=== PATIENT | female | born 1965 | race Caucasian/White ===

== ENCOUNTER 2019-04-16 16:16 | Emergency (ER) | payer BC ==
--- NOTE | 2019-04-16 17:07 | UC ---
Abdominal Pain Female HPI - HPI Summary HPI Summary: pt with 3-4 days intermittent left flank abdominal pain. Today pain increased and pain in lower abd, mild cramping. states urinary frequency. no dysuria, hematuria. no fever, chills. No analgesia taken. No h/o similar no paresthesia. Pt with h/o crohns s/p surgery - not on immunosuppressants. no nausea, vomting, diarrhea meds reviewed - History of Current Complaint Chief Complaint: UCAbdominalPain Stated Complaint: ABDOMINAL COMPLAINT Time Seen by Provider: 04/16/19 16:57 Hx Obtained From: Patient ?: No Onset/Duration: Sudden Onset Pain Intensity: 9 Allergies/Adverse Reactions: Allergies Allergy/AdvReac Type Severity Reaction Status Date / Time amoxicillin [From Augmentin] Allergy Unknown Verified 04/16/19 16:29 Reaction Details clavulanic acid Allergy Unknown Verified 04/16/19 16:29 [From Augmentin] Reaction Details Home Medications: Home Medications Cholecalciferol (Vitamin D3) [Vitamin D3] 1,000 unit PO 04/16/19 [History] Cyanocobalamin (Vitamin B-12) [B-12] 2,500 mcg PO 04/16/19 [History] PMH/Surg Hx/FS Hx/Imm Hx Previously Healthy: Yes Other GI/ History: crohns' - Surgical History Surgical History: Yes Surgery Procedure, Year, and Place: 12/2006 - [facility] - (right) carpal tunnel. 1992 - . 1986 - appendectomy. 1990bowel resection r/t crohns. COLONOSCOPY - Family History Known Family History: Positive: Other - no hh/o renal colic, Non-Contributory - Social History Occupation: Employed Full-time Lives: With Family Alcohol Use: Rare Substance Use Type: None Smoking Status (MU): Never Smoked Tobacco Have You Smoked in the Last Year: No Review of Systems All Other Systems Reviewed And Are Negative: Yes Constitutional: Positive: Negative Skin: Positive: Negative Eyes: Positive: Negative ENT: Positive: Negative Respiratory: Positive: Negative Cardiovascular: Positive: Negative Gastrointestinal: Positive: Other - left flank pain Genitourinary: Positive: Frequency, Urgency. Negative: Hematuria Physical Exam - Summary Physical Exam Summary: Vital Signs Reviewed: Yes A+Ox3, no distress Eyes: Conjunctiva Clear, CLARE. EOM intact and full ENT: Hearing grossly normal TM x 2 clear, mmoist, uvula midline, no exudate, no erythema Neck: Positive: Supple Respiratory: Positive: No respiratory distress, No accessory muscle use + CTA throughout no w/r Cardiovascular: RRR nl s1, s2 no m/r CBT <2 sec abd soft + BS nt/nd no guarding, no distension, no CVA no guarding, no rebound Musculoskeletal Exam: NICHOLE x 4 without difficulty Strength Intact, ROM Intact Neurological: Positive: Alert, + sensation throughout Psychological: Positive: Normal Response To Family Skin: Positive: no rash, no ecchymosis Triage Information Reviewed: Yes Vital Signs: Initial Vital Signs Temp 97.9 F 04/16/19 16:25 Pulse 73 04/16/19 16:25 Resp 18 04/16/19 16:25 BP 136/69 04/16/19 16:25 Pulse Ox 98 04/16/19 16:25 Diagnostics - Radiology No standard instances Radiology Interpretation Completed By: Radiologist - Attending Doctor: Nicky Diggs ([id number]) Mechanical Product Engineer: Richard Nieto ([id number]) Manager Paid: NUANCE (NUANCE) Report Date: 04/16/2019 17:18:00 Report Status: Final Begin of Report Content Patient Name: WILMA BEATTY Medical Record#: [id number] Ordering Physician: Nicky Diggs MD Acct.#: [id number] : 1965 Age: 54 Sex: F Location: [facility] Exam Date: 04/16/191717 ADM Status: REG ER Order Information: CT ABD/PEL W/O Accession Number: [id number] CPT: 17027 CLINICAL HISTORY: Left flank pain and hematuria. Relevant medical history includes appendectomy and bowel resection secondary to Crohn's disease. COMPARISON: None TECHNIQUE: Noncontrast CT examination of the abdomen and pelvis from the lung bases through the initial tuberosities. FINDINGS: VISUALIZED LUNG BASES: The visualized lung bases are grossly clear. There is no pleural effusion. ABDOMEN AND PELVIS: Evaluation of the solid organs and vasculature is limited without intravenous contrast. The liver, spleen, pancreas and adrenal glands are grossly normal in appearance. The gallbladder is normal. At the lower pole collecting system of the left kidney there is a 5 mm calcification (coronal image 92). At the left ureterovesical junction there is a punctate hyperattenuating focus (axial image 73), possibly a small calcification. Otherwise the kidneys are normal in appearance without hydronephrosis. Evaluation of the gastrointestinal tract is limited in the absence of oral contrast. The patient appears to be status post right hemicolectomy. There is surgical material in the colon and peritoneum. The small and large bowel are not distended.At the splenic flexure (axial image 25) there is a segment of bowel extending to the distal descending colon exhibiting possible wall thickening up to 6 mm. There is no definite pericolonic inflammatory change. There is no mesenteric lymphadenopathy. The pelvic viscera is normal in appearance. The abdominal aorta and iliac arteries are normal in course and diameter. Degenerative changes include multilevel loss of intervertebral disc height involving the lower thoracic and lumbar spine. There are bilateral pars interarticularis defects at L5/S1 yielding a mild grade 1 L5 over S1 anterolisthesis. There is vacuum disc phenomenon at L5/S1. IMPRESSION: 1. There is a nonobstructive renal calcification in the left lower pole collecting system as well as a punctate calcification at the left ureterovesical junction. There are no definite signs of left-sided hydronephrosis. 2. Possible wall thickening of the colon from the splenic flexure to the distal descending colon. Please correlate to clinical signs and symptoms of inflammatory or infectious colitis. 3. Additional chronic, degenerative and iatrogenic findings described in the body of the report. <Electronically signed by Richard Nieto MD in OV> 04/16/191801 Dictated By: Richard Nieto MD Dictated Date/Time: 04/16/191801 Transcribed Date/Time: 04/16/19 4039 Copy to: CC:Nicky Diggs MD; Lala Brunson MD Imaging - [facility] Imaging - [place] [facility] [place] [facility] Imaging [facility] [address] [facility] [address] [address] ph [phone]) ph ) ph ([phone]) Re-Evaluation - Re-Evaluation Second Eval Comment: reviewed CT with pt. Pt without abd oain, fever, bowel changes. will discharge home with flomax and strainer. motrin/apap. hydrate. f/u with urology. ED if changes in pain or abd sx. pt in agreement Abd Pain Female Course/Dx - Course Course Of Treatment: t with intermitted left flank pain in 2-3 days - increased today and became lower abd discomfort Pain not increased at presents - no analgesia taken VSS exam non concerning pt with + blood in urine d/w pt plan: to ED, CT non contrast with possible ED, f/u with pcp pt elected CT - aware of limitation - Differential Dx/Diagnosis Provider Diagnosis: Renal colic on left side Discharge - Sign-Out/Discharge Documenting (check all that apply): Patient Departure All imaging exams completed and their final reports reviewed: Yes - Discharge Plan Condition: Stable Disposition: HOME Prescriptions: Tamsulosin HCl [Flomax] 0.4 mg PO BEDTIME #5 cap Patient Education Materials: Renal Colic (ED) Referrals: Peng Lamar MD [Medical Doctor] - Lala Brunson MD [Primary Care Provider] - Additional Instructions: - stay well hydrated. Drink plenty of non-alcoholic, non-caffinated beverages - alternate ibuprofen (Advil Motrin) and tylenol for pain - take flomax at bedtime - stop taking once you catch your stone - STrain your urine -if you catch the stone - bring with you to your follow up appointment - Contact the urologist to schedule a follow-up appointment. If your pain becomes uncontrolled - go to the emergency department for further treatment aS discussed - your CT scan suggested inflammation of your intestine - monitor closely - if you have abdominal pain, vomiting, fever, blood in your stools it is recommended you go to the emergency department for further evaluation - Billing Disposition and Condition Condition: STABLE Disposition: Home
[2019-04-16 17:28] VITALS: BP 136/69
== END 2019-04-16 18:35 | disposition home or self-care (01) ==
LOC: UCEAST 16:16
DX: N20.0 Calculus of kidney (principal); M51.34 Other intervertebral disc degeneration, thoracic region; M51.36 Other intervertebral disc degeneration, lumbar region; Z88.1 Allergy status to other antibiotic agents; Z88.0 Allergy status to penicillin; Z90.89 Acquired absence of other organs
CPT/HCPCS: 74176; 81003; 99212; G0463